=== PATIENT | male | born 1965 | race Caucasian/White ===

== ENCOUNTER 2025-04-27 15:53 | Emergency (ER) | payer MEDICAID ==
[~2025-04-27] VITALS: Ht 172.7 cm; Wt 112.0 kg
[2025-04-27 16:08] LABS: BASOPHILS 0.6 % (0.2-1.2); EOSINOPHILS 3.0 % (0.8-7.0); LYMPHOCYTES 40.4 % (21.8-53.1); MCH 30.4 PG (25.7-32.2); MCHC 34.3 g/dL (32.3-36.5); MCV 88.4 fL (79.0-92.2); MONOCYTES 11.1 % (5.3-12.2); NEUTROPHILS 44.7 % (34.0-67.9); RBC 4.84 M/uL (4.63-6.08)
[2025-04-27 16:22] LABS: ALT (SGPT) 83.0 U/L (14-59); AST (SGOT) 78.0 U/L (15-37); GLOMERULAR FILTRATION RATE,EST 99.0 mL/min (>60); PROTEIN, TOTAL 7.5 g/dL (6.4-8.2); UREA NITROGEN 15.0 mg/dL (7-18)
[2025-04-27] MEDS ORDERED: PRILOSEC OTC20 MG PO (16:26)
[2025-04-27] MEDS ORDERED: FLONASE ALLERG9.9 ML NAS (16:28)
[2025-04-27] MEDS ORDERED: LISINOPRIL5 MG PO (16:28)
[2025-04-27] MEDS ORDERED: POTASSIUM CHLORIDE 10 MEQ/100 ML BAG IV SCH (16:45)
[2025-04-27] MEDS ORDERED: MAGNESIUM SULFATE 2 GM/50 ML BAG IV ONE (17:00)
[2025-04-27] MEDS ORDERED: POTASSIUM CHLORIDE 20 MEQ/15 ML CUP PO ONE (17:00)
[2025-04-27] MEDS ORDERED: NITROGLYCERIN0.4 MG SL (18:34)
[2025-04-27 19:10] VITALS: BP 135/85
--- NOTE | 2025-04-27 19:53 | EKG ---
[facility] [address] [facility] [place] [address] Signed Normal sinus rhythm Nonspecific ST and T wave abnormality Abnormal ECG When compared with ECG of 27-APR-2025 15:55, (Unconfirmed) No significant change was found Confirmed by Nicola Taveras DO ([id number]) on 04/27/2025 7:53:16 PM Electronically Signed By: NICOLA TAVERAS DO 04/27/251952 PATIENT NAME: ASPENFLAVIA SALEEM Electrocardiogram DATE OF : 63 PHYSICIAN: NICOLA TAVERAS DO REPORT #: [id number] REPORT IS CONFIDENTIAL AND NOT TO BE RELEASED WITHOUT AUTHORIZATION
== END 2025-04-27 19:28 | disposition home or self-care (01) ==
LOC: ED 15:53
PROVIDERS: Emergency Medicine
DX: R07.89 Other chest pain (principal); E87.6 Hypokalemia; E83.42 Hypomagnesemia; Z79.899 Other long term (current) drug therapy
CPT/HCPCS: 36415; 71045; 80053; 83735; 84484; 85025; 93005; 93010; 96365; 96367; 99285-25; A9270; J3475; J3480